=== PATIENT | female | born 1985 ===

== ENCOUNTER 2017-02-08 14:53 | Emergency (ER) | payer OTHER ==
[2017-02-08 15:05] VITALS: BP 98/64
--- NOTE | 2017-02-08 16:14 | UC ---
Laceration HPI - HPI Summary HPI Summary: States she hurt her left eyebrow with the corner of car door at around 11am. She has some bleeding at the time but it stopped as she closed it manually. She denies any pain, blurred vision. - History Of Current Complaint Chief Complaint: UCLaceration Stated Complaint: EYEBROW LACERATION Time Seen by Provider: 02/08/17 15:57 Hx Last Menstrual Period: 01/08/17 - Allergies/Home Medications Allergies/Adverse Reactions: Allergies Allergy/AdvReac Type Severity Reaction Status Date / Time No Known Allergies Allergy Verified 02/08/17 15:00 Home Medications: Home Medications NK [No Home Medications Reported] 02/08/17 [History Confirmed 02/08/17] PMH/Surg Hx/FS Hx/Imm Hx Previously Healthy: Yes - Surgical History Surgical History: None - Social History Alcohol Use: None Substance Use Type: None Smoking Status (MU): Never Smoked Tobacco - Immunization History Most Recent Tetanus Shot: not up to date Review of Systems Constitutional: Negative Skin: Other - laceration All Other Systems Reviewed And Are Negative: Yes Physical Exam Triage Information Reviewed: Yes Vital Signs: Initial Vital Signs Temp 98.2 F 02/08/17 15:01 Pulse 78 02/08/17 15:01 Resp 16 02/08/17 15:01 BP 98/64 02/08/17 15:01 Pulse Ox 100 02/08/17 15:01 Vital Signs Reviewed: Yes Eye Exam: Normal ENT Exam: Normal Skin Exam: Other - linear superficial laceration within left eyebrow, no active bleeding, no surrounding bruising. Laceration Course/Dx - Course/Dx Course Of Treatment: Surgical glue applied to laceration, patient tolerated procedure well - Differential Dx - Laceration/Wound Provider Diagnoses: left eyebrow laceration Discharge - Discharge Plan Condition: Stable Disposition: HOME Patient Education Materials: Laceration (ED), Facial Laceration (ED) Referrals: No Primary Care Phys,NOPCP [Primary Care Provider] - Images Head: 1 - laceration
== END 2017-02-08 16:18 | disposition home or self-care (01) ==
LOC: UCEAST 14:53
DX: S01.112A Laceration without foreign body of left eyelid and periocular area, initial encounter (principal); W22.8XXA Striking against or struck by other objects, initial encounter; Y93.9 Activity, unspecified; Y92.9 Unspecified place or not applicable
CPT/HCPCS: 99201; G0463